=== PATIENT | male | born 1995 | race Asian ===

== ENCOUNTER 2024-08-17 12:58 | Emergency (ER) | payer MEDICAID ==
[~2024-08-17] VITALS: Ht 160 cm; Wt 64.3 kg
[2024-08-17 13:34] VITALS: TEMP 98.2
[2024-08-17] MEDS: cyclobenzaprine 10mg tablet PO ONE (15:17)
[2024-08-17] MEDS: ketorolac trometh 15mg/ml vial 15 MG/ML ML IM ONE (15:18)
[2024-08-17] MEDS: LIDOcaine 5% patch TP ONE (15:19)
[2024-08-17] MEDS ORDERED: CYCL-1 PO (15:21)
[2024-08-17] MEDS ORDERED: IBUP-1984 PO (15:21)
[2024-08-17] MEDS ORDERED: LIDO700A32 TOP (15:21)
[2024-08-17 16:03] VITALS: BP 167/109; PULSE 84; RESP 18; O2SAT 98
== END 2024-08-17 16:03 | disposition home or self-care (01) ==
LOC: ER 12:59
DX: M54.50 Low back pain, unspecified (principal); Z79.899 Other long term (current) drug therapy; Z79.1 Long term (current) use of non-steroidal anti-inflammatories (NSAID)
CPT/HCPCS: 96372; 99284; J1885